=== PATIENT | female | born 1980 | race Caucasian/White ===

== ENCOUNTER 2018-11-26 23:39 | Observation (INO) | payer SELFPAY ==
[2018-11-27] MEDS ORDERED: Lactated Ringers 1,000 ML IV ONE (00:27)
[2018-11-27 01:10] LABS: BLOOD UREA NITROGEN,BUN 11 mg/dL (7.0-18.0); CARBON DIOXIDE,CO2 17.4 mmol/L (21.0-32.0); CHLORIDE,CL 105 mmol/L (98-107); GLUCOSE RANDOM 137 mg/dL (74-106); POTASSIUM,K 3.2 mmol/L (3.5-5.1); SODIUM,NA 136 mmol/L (136-145)
[2018-11-27] MEDS ORDERED: Morphine 2 MG/ML Syringe IVPUSH ONE (01:15)
[2018-11-27] MEDS ORDERED: Morphine 10 MG/ML Syringe IVPUSH ONE (01:15)
[2018-11-27] MEDS ORDERED: Ampicillin 2 GM in Sodium Chloride 0.9% 50 ML IV SCH (03:30)
[2018-11-27] MEDS: Lactated Ringers 1,000 ML IV SCH ×3 (03:45→23:28)
[2018-11-27] MEDS: Ampicillin 2 GM in Sodium Chloride 0.9% 100 ML IV SCH ×4 (03:55→22:25)
[2018-11-27] MEDS: Acetaminophen/oxyCODONE 325-5 MG Tab PO PRN ×5 (04:37→22:34)
--- NOTE | 2018-11-27 10:30 | US ---
INDICATION: female; right flank pain; rule out kidney stones. COMPARISON: Ultrasound examination of the abdomen January 05, 2009. TECHNIQUE: Ultrasound examination of the kidneys and bladder. FINDINGS: The right kidney is measuring 11.1 x 5.6 x 6.5 cm and the left kidney is measuring 10.2 x 5.7 x 5.5 cm. Mild prominence of the right renal collecting system; could be secondary to . Tiny nonobstructing renal calculi bilateral. Urinary bladder is unremarkable. Impression: 1. Mild prominence of the right intrarenal collecting system; could be secondary to . 2. Tiny nonobstructing calculi bilateral. Dictated by Kianna Pacheco MD @ Nov 27 2018 10:24AM Signed by Dr. Kianna Pacheco @ Nov 27 2018 10:29AM
[2018-11-27] MEDS ORDERED: Miconazole 2% Crm 30 GM Tube TOP SCH (22:30)
[2018-11-27] MEDS ORDERED: Nystatin Crm 30 GM Tube TOP PRN (23:10)
[2018-11-28] MEDS: Ampicillin 2 GM in Sodium Chloride 0.9% 100 ML IV SCH ×2 (04:00→10:04)
[2018-11-28] MEDS: Lactated Ringers 1,000 ML IV SCH (07:33)
[2018-11-28] MEDS: Acetaminophen/oxyCODONE 325-5 MG Tab PO PRN (10:01)
[2018-11-28] MEDS ORDERED: Sulfamethoxazole/Trimethoprim 800-160 MG Tab PO SCH (11:00)
== END 2018-11-28 10:40 | disposition home or self-care (01) ==
LOC: MW.OBCHECK 23:39 → MW.OB 23:42 → MW.OBCHECK 11-27 03:31
PROVIDERS: ADMIT Obstetrics & Gynecology; ATTEND Obstetrics & Gynecology
DX: O23.02 Infections of kidney in pregnancy, second trimester (principal); N13.6 Pyonephrosis; Z3A.22 22 weeks gestation of pregnancy
CPT/HCPCS: 36415; 59025; 76775; 80053; 81003; 82570; 84156; 84550; 85025; 85027; 87086; 96361; 96365; 96366; 96367; 96375; 96376; A9270; G0378; J0290; J1580; J2270; J7030; J7050; J7120

== ENCOUNTER 2020-11-30 07:31 | Day surgery (SDC) | payer MEDICAID ==
[~2020-11-30 07:31] MED LIST: Albuterol 0.083% 2.5 MG/3 ML Neb Soln NEB PRN; Dexamethasone 4 MG/ML 5 ML MDV ONE; HYDROmorphone 1 MG/ML Syringe IVPUSH PRN; Metoclopramide 10 MG/2 ML SDV IVPUSH PRN; Midazolam 1 MG/ML 2 ML SDV ONE; Morphine 2 MG/ML SYRINGE IVPUSH PRN; Naloxone 0.4 MG/ML SDV IVPUSH PRN; Ondansetron 4 MG/2 ML SDV IVPUSH PRN; Ondansetron 4 MG/2 ML SDV ONE; Propofol 200 MG/20 ML SDV ONE; Rocuronium Bromide 50 MG/5 ML Syringe ONE; fentaNYL 100 MCG/2 ML SDV IVPUSH PRN; fentaNYL 250 MCG/5 ML SDV ONE
[2020-11-30] MEDS ORDERED: Lactated Ringers 1,000 ML IV SCH (07:45)
[2020-11-30] MEDS ORDERED: Scopolamine 1.5 MG Transdermal Patch ONE (08:25)
[2020-11-30] MEDS ORDERED: Fluorescein 5 ML Vial ONE (08:47)
[2020-11-30] MEDS ORDERED: Methylene Blue 50 MG/10 ML Ampule ONE (08:47)
[2020-11-30] MEDS ORDERED: Bupivacaine 0.25% 10 ML SDV ONE (08:47)
[2020-11-30] MEDS ORDERED: Octyl 2-Cyanoacrylate 1 Tube ONE (08:48)
[2020-11-30] MEDS ORDERED: ceFAZolin 1 GM Vial ONE (08:50)
[2020-11-30] MEDS ORDERED: Sodium Chloride 0.9% 20 ML ONE ×2 (08:50→12:27)
[2020-11-30] MEDS ORDERED: Sugammadex Sodium 200 MG/2 ML VIAL ONE (08:55)
[2020-11-30] MEDS ORDERED: Sodium Chloride 0.9% 10 ML Syringe FLUSH PRN (08:58)
[2020-11-30] MEDS ORDERED: Sodium Chloride 0.9% 2.5 ML Syringe FLUSH PRN (08:58)
[2020-11-30] MEDS ORDERED: Sodium Chloride 0.9% 10 ML SDV IV PRN (08:58)
[2020-11-30 08:59] LABS: BLOOD UREA NITROGEN,BUN 12 mg/dL (7.0-18.0); CARBON DIOXIDE,CO2 24.2 mmol/L (21.0-32.0); CHLORIDE,CL 106 mmol/L (98-107); GLUCOSE RANDOM 114 mg/dL (74-106); POTASSIUM,K 3.7 mmol/L (3.5-5.1); SODIUM,NA 140 mmol/L (136-145)
[2020-11-30] MEDS ORDERED: Lidocaine 1% 20 ML MDV ONE (09:00)
[2020-11-30] MEDS ORDERED: Lidocaine 1% with EPINEPHrine 1:100,000 20 ML MDV ONE (09:00)
[2020-11-30] MEDS ORDERED: Neomycin/Polymyxin B Bladder Irrigation 1 ML Amp ONE (09:00)
--- NOTE | 2020-11-30 09:14 | PCM.PREANE ---
Preanesthetic Assessment - Anesthesia/Transfusion/Family Hx Anesthesia History: Prior Anesthesia Without Reaction Family History of Anesthesia Reaction: No Transfusion History: No Prior Transfusion(s) - Review of Systems General: No Symptoms Pulmonary: No Symptoms Cardiovascular: No Symptoms Gastrointestinal: No Symptoms Neurological: No Symptoms Other: Reports: None - Physical Assessment NPO Status Date: 11/30/20 NPO Status Time: 00:00 Vital Signs: Last Vital Signs Temp 97.3 F 11/30/20 08:01 Pulse 75 11/30/20 08:01 Resp 16 11/30/20 08:01 BP 129/85 11/30/20 08:01 Pulse Ox 98 11/30/20 08:01 Height: 5 ft 2 in Weight: 155 lb ASA Class: 2 Mental Status: Alert & Oriented x3 Airway Class: Mallampati = 2 Dentition: Reports: Normal Dentition Thyro-Mental Finger Breadths: 3 Mouth Opening Finger Breadths: 3 ROM/Head Extension: Full Lungs: Clear to Auscultation, Normal Respiratory Effort Cardiovascular: Regular Rate, Regular Rhythm - Lab Values: Laboratory Last Values WBC 3.79 K/uL (4.0-11.0) L 11/30/20 08:12 RBC 3.96 M/uL (4.30-5.90) L 11/30/20 08:12 Hgb 11.1 g/dL (12.0-16.0) L 11/30/20 08:12 Hct 33.9 % (36.0-46.0) L 11/30/20 08:12 MCV 85.6 fL (80.0-98.0) 11/30/20 08:12 MCH 28.0 pg (27.0-32.0) 11/30/20 08:12 MCHC 32.7 g/dL (31.0-37.0) 11/30/20 08:12 RDW Std Deviation 47.8 fl (28.0-62.0) 11/30/20 08:12 RDW Coeff of Lyudmila 15 % (11.0-15.0) 11/30/20 08:12 Plt Count 299 K/uL (150-400) 11/30/20 08:12 MPV 9.90 fL (7.40-12.00) 11/30/20 08:12 Neut % (Auto) 51.9 % (48.0-80.0) 11/30/20 08:12 Lymph % (Auto) 35.4 % (16.0-40.0) 11/30/20 08:12 [place] % (Auto) 8.2 % (0.0-15.0) 11/30/20 08:12 Eos % (Auto) 3.7 % (0.0-7.0) 11/30/20 08:12 Baso % (Auto) 0.8 % (0.0-1.5) 11/30/20 08:12 Neut # (Auto) 2.0 K/uL (1.4-5.7) 11/30/20 08:12 Lymph # (Auto) 1.3 K/uL (0.6-2.4) 11/30/20 08:12 [place] # (Auto) 0.3 K/uL (0.0-0.8) 11/30/20 08:12 Eos # (Auto) 0.1 K/uL (0.0-0.7) 11/30/20 08:12 Baso # (Auto) 0.0 K/uL (0.0-0.1) 11/30/20 08:12 Nucleated RBC % 0.0 /100WBC 11/30/20 08:12 Nucleated RBCs # 0 K/uL 11/30/20 08:12 Sodium 140 mmol/L (136-145) 11/30/20 08:12 Potassium 3.7 mmol/L (3.5-5.1) 11/30/20 08:12 Chloride 106 mmol/L (98-107) 11/30/20 08:12 Carbon Dioxide 24.2 mmol/L (21.0-32.0) 11/30/20 08:12 BUN 12 mg/dL (7.0-18.0) 11/30/20 08:12 Creatinine 0.9 mg/dL (0.6-1.0) 11/30/20 08:12 Est Cr Clr Drug Dosing 65.72 mL/min 11/30/20 08:12 Estimated GFR (MDRD) > 60.0 ml/min 11/30/20 08:12 Glucose 114 mg/dL (74-106) H 11/30/20 08:12 Calcium 8.3 mg/dL (8.5-10.1) L 11/30/20 08:12 - Allergies Allergies/Adverse Reactions: Allergies Allergy/AdvReac Type Severity Reaction Status Date / Time pollen extracts Allergy "sinus Verified 11/30/20 07:57 congestion" - Acknowledgements Anesthesia Type Planned: General Anesthesia Pt an Appropriate Candidate for the Planned Anesthesia: Yes Alternatives and Risks of Anesthesia Discussed w Pt/Guardian: Yes Pt/Guardian Understands and Agrees with Anesthesia Plan: Yes PreAnesthesia Questionnaire HEENT History: Reports: Other (See Below) Other HEENT History: wears glasses/contacts Cardiovascular History: Reports: None Respiratory History: Reports: None Gastrointestinal History: Reports: None Genitourinary History: Reports: UTI, Recurrent [employer] History: Reports: , Therapeutic Musculoskeletal History: Reports: None Neurological History: Reports: None Psychiatric History: Reports: Anxiety, Other (See Below) Other Psychiatric History: hx post depression Endocrine/Metabolic History: Reports: Hypoparathyroidism Hematologic History: Reports: Anemia Immunologic History: Reports: None Oncologic (Cancer) History: Reports: None Dermatologic History: Reports: None - Infectious Disease History Infectious Disease History: Reports: None - Past Surgical History Head Surgeries/Procedures: Reports: None HEENT Surgical History: Reports: Oral Surgery Cardiovascular Surgical History: Reports: None Respiratory Surgical History: Reports: None GI Surgical History: Reports: Cholecystectomy Female Surgical History: Reports: Breast Reconstruction, D&C Other Female Surgeries/Procedures: "breast lift" Endocrine Surgical History: Reports: None Neurological Surgical History: Reports: None Musculoskeletal Surgical History: Reports: None Oncologic Surgical History: Reports: None Dermatological Surgical History: Reports: None - SUBSTANCE USE Tobacco Use Status *Q: Never Tobacco User - HOME MEDS Home Medications: Home Meds Progesterone, Micronized [Progesterone] 200 mg PO DAILY 11/25/20 [History] - CURRENT (IN HOUSE) MEDS Current Meds: Current Medications Albuterol (Albuterol 0.083% 2.5 Mg/3 Ml Neb Soln) 2.5 mg NEB ONETIME PRN PRN Reason: Wheezing Droperidol (Droperidol 5 Mg/2 Ml Sdv) 0.625 mg IVPUSH ONETIME PRN PRN Reason: Nausea/Vomiting Fentanyl (Fentanyl 100 Mcg/2 Ml Sdv) 50 mcg IVPUSH Q5M PRN PRN Reason: Pain (mild 1-3) Hydromorphone HCl (Hydromorphone 1 Mg/Ml Syringe) 1 mg IVPUSH Q10M PRN PRN Reason: Pain (moderate 4-6) Lactated Ringer's (Ringers, Lactated) 1,000 mls @ 125 mls/hr IV ASDIRECTED FIDEL Last Admin: 11/30/20 08:01 Dose: 125 mls/hr Documented by: Metoclopramide HCl (Metoclopramide 10 Mg/2 Ml Sdv) 10 mg IVPUSH ONETIME PRN PRN Reason: Nausea/Vomiting Morphine Sulfate (Morphine 2 Mg/Ml Syringe) 2 mg IVPUSH Q10M PRN PRN Reason: Pain (severe 7-10) Naloxone HCl (Naloxone 0.4 Mg/Ml Sdv) 0.1 mg IVPUSH ASDIRECTED PRN PRN Reason: Respiratory Depression Ondansetron HCl (Ondansetron 4 Mg/2 Ml Sdv) 4 mg IVPUSH ONETIME PRN PRN Reason: Nausea/Vomiting Sodium Chloride (Sodium Chloride 0.9% 10 Ml Syringe) 10 ml FLUSH ASDIRECTED PRN PRN Reason: Keep Vein Open Sodium Chloride (Sodium Chloride 0.9% 2.5 Ml Syringe) 2.5 ml FLUSH ASDIRECTED PRN PRN Reason: Keep Vein Open Sodium Chloride (Sodium Chloride 0.9% 10 Ml Sdv) 10 ml IV ASDIRECTED PRN PRN Reason: IV Use Discontinued Medications Bupivacaine HCl (Bupivacaine 0.25% 10 Ml Sdv) Confirm Administered Dose 20 ml .ROUTE .STK-MED ONE Stop: 11/30/20 08:48 Cefazolin Sodium (Cefazolin 1 Gm Vial) Confirm Administered Dose 2 gm .ROUTE .STK-MED ONE Stop: 11/30/20 08:51 Dexamethasone (Dexamethasone 4 Mg/Ml 5 Ml Mdv) Confirm Administered Dose 20 mg .ROUTE .STK-MED ONE Stop: 11/30/20 07:17 Fentanyl (Fentanyl 250 Mcg/5 Ml Sdv) Confirm Administered Dose 250 mcg .ROUTE .STK-MED ONE Stop: 11/30/20 07:09 Fluorescein Sodium (Fluorescein 5 Ml Vial) Confirm Administered Dose 5 ml .ROUTE .STK-MED ONE Stop: 11/30/20 08:48 Sodium Chloride (Normal Saline) Confirm Administered Dose 20 mls @ as directed .ROUTE .STK-MED ONE Stop: 11/30/20 08:51 Lidocaine HCl (Lidocaine 1% 5 Ml Sdv) Confirm Administered Dose 5 ml .ROUTE .[facility] ONE Stop: 11/30/20 07:17 Lidocaine HCl (Lidocaine 1% 20 Ml Mdv) Confirm Administered Dose 20 ml .[address]TE .[facility] ONE Stop: 11/30/20 09:01 Lidocaine/Epinephrine (Lidocaine 1% With Epinephrine 1:100,000 20 Ml Mdv) Confirm Administered Dose 20 ml .[address] .[facility] ONE Stop: 11/30/20 09:01 Methylene Blue (Methylene Blue 50 Mg/10 Ml Ampule) Confirm Administered Dose 50 mg .[address] .[facility] ONE Stop: 11/30/20 08:48 Midazolam HCl (Midazolam 1 Mg/Ml 2 Ml Sdv) Confirm Administered Dose 2 mg .R[address] .[facility] ONE Stop: 11/30/20 07:09 Neomycin/Polymyxin (Neomycin/Polymyxin B Bladder Irrigation 1 Ml Amp) Confirm Administered Dose 1 ml .ROUTE .[facility] ONE Stop: 11/30/20 09:01 Octyl Cyanoacrylate (Octyl 2-Cyanoacrylate 1 Tube) Confirm Administered Dose 1 applic .ROUTE .[facility] ONE Stop: 11/30/20 08:49 Ondansetron HCl (Ondansetron 4 Mg/2 Ml Sdv) Confirm Administered Dose 4 mg .ROUTE .[facility] ONE Stop: 11/30/20 07:17 Propofol (Propofol 200 Mg/20 Ml Sdv) Confirm Administered Dose 200 [address] .[address] .[facility] ONE Stop: 11/30/20 07:09 Rocuronium [place] (Rocuronium [place] 50 Mg/5 Ml Syringe) Confirm Administered Dose 50 mg .[address] .[facility] ONE Stop: 11/30/20 07:19 Scopolamine (Scopolamine 1.5 Mg Transdermal Patch) Confirm Administered Dose 1.5 mg .ROUTE .[facility] ONE Stop: 11/30/20 08:26 Sugammadex Sodium (Sugammadex Sodium 200 Mg/2 Ml Vial) Confirm Administered Dose 400 mg .[address]TE .[facility] ONE Stop: 11/30/20 08:56
[2020-11-30] MEDS ORDERED: Vasopressin 20 Units/1 ML MDV ONE (10:46)
[2020-11-30] MEDS ORDERED: HYDROmorphone 2 MG/ML Syringe ONE (12:27)
[2020-11-30] MEDS ORDERED: fentaNYL 100 MCG/2 ML SDV ONE (12:54)
[2020-11-30] MEDS ORDERED: Ketorolac 30 MG/ML SDV IVPUSH PRN (13:55)
[2020-11-30] MEDS ORDERED: Ketorolac 30 MG/ML SDV IVPUSH ONE (13:55)
[2020-11-30] MEDS ORDERED: Acetaminophen/oxyCODONE 325-5 MG Tab PO PRN (13:55)
[2020-11-30] MEDS ORDERED: Promethazine 25 MG/ML SDV IM PRN (13:55)
[2020-11-30] MEDS ORDERED: Ondansetron 4 MG/2 ML SDV IVPUSH PRN (13:55)
[2020-11-30] MEDS ORDERED: ceFAZolin 2 GM in Premix Bag 1 BAG IV SCH (14:00)
--- NOTE | 2020-11-30 14:10 | PCM.OPNOTE ---
- General Post-Op/Procedure Note Date of Surgery/Procedure: 11/30/20 Operative Procedure(s): Total laparoscopic Hysterectomy , Bilateral Salphingectomy. Harper culdoplasty. Anterior and posterior colporraphy. Perineorraphy. Single incision midurethral sling Findings: Normal sized anteverted uterus , Normal tubes and ovaries Stage 2 Cystocoele Stage 2 rectocoele Pre Op Diagnosis: 30yo P8 with abnormal uterine bleeding. Stress incontinence. Cystocoele and Rectocoele Post-Op Diagnosis: same Anesthesia Technique: General ET Tube Primary Surgeon: Memo Ramirez Secondary Surgeon: George Higuera Anesthesia Provider: Amina Dumont Pathology: Uterus and tubes Vaginal llamas Fluid Replacement, Intraop: 1,100 Output, Urine Amount: 300 EBL in mLs: 400 Complications: None Condition: Good
--- NOTE | 2020-11-30 14:40 | PCM48HPAN ---
Post Anesthesia Note - EVALUATION WITHIN 48HRS OF ANESTHETIC Vital Signs in Normal Range: Yes Patient Participated in Evaluation: Yes Respiratory Function Stable: Yes Airway Patent: Yes Cardiovascular Function Stable: Yes Hydration Status Stable: Yes Pain Control Satisfactory: Yes Nausea and Vomiting Control Satisfactory: Yes Mental Status Recovered: Yes Vital Signs: Last Vital Signs Temp 98.8 F 11/30/20 13:14 Pulse 73 11/30/20 13:54 Resp 12 11/30/20 13:54 BP 130/78 11/30/20 13:54 Pulse Ox 96 11/30/20 13:54
--- NOTE | 2020-11-30 14:40 | PCM.POSTAN ---
POST ANESTHESIA ASSESSMENT - MENTAL STATUS Mental Status: Alert, Oriented - VITAL SIGNS Vital Signs: Last Vital Signs Temp 98.8 F 11/30/20 13:14 Pulse 73 11/30/20 13:54 Resp 12 11/30/20 13:54 BP 130/78 11/30/20 13:54 Pulse Ox 96 11/30/20 13:54 - RESPIRATORY Respiratory Status: Respiratory Rate WNL, Airway Patent, O2 Saturation Stable - CARDIOVASCULAR CV Status: Pulse Rate WNL, Blood Pressure Stable - GASTROINTESTINAL GI Status: No Symptoms - POST OP HYDRATION Hydration Status: Adequate & Stable
[2020-11-30] MEDS ORDERED: Belladonna Alkaloids/Opium 16.2-30 MG Supp RECTAL ONE (16:00)
[2020-11-30] MEDS ORDERED: Acetaminophen 325 MG Tab PO ONE (18:00)
[2020-11-30] MEDS: Morphine 4 MG/ML Syringe IVPUSH PRN (20:12)
[2020-11-30] MEDS ORDERED: Belladonna Alkaloids/Opium 16.2-30 MG Supp ONE (20:14)
[2020-11-30] MEDS: Metoclopramide 10 MG/2 ML SDV IVPUSH SCH ×2 (21:37)
[2020-12-01] MEDS: Morphine 4 MG/ML Syringe IVPUSH PRN (04:30)
[2020-12-01 06:32] LABS: BLOOD UREA NITROGEN,BUN 7 mg/dL (7.0-18.0); CARBON DIOXIDE,CO2 25.2 mmol/L (21.0-32.0); CHLORIDE,CL 104 mmol/L (98-107); GLUCOSE RANDOM 122 mg/dL (74-106); POTASSIUM,K 3.9 mmol/L (3.5-5.1); SODIUM,NA 138 mmol/L (136-145)
--- NOTE | 2020-12-01 06:40 | PCM.SURGPN ---
- General Info Date of Service: 12/01/20 Date of Surgery/Procedure: 11/30/20 POD#: 1 Post-Op Diagnosis: AUB. Stress incontinence. Cystocele , Rectocele Functional Status: Reports: Pain Controlled, Tolerating Diet, Ambulating, Urinating - Review of Systems General: Reports: No Symptoms HEENT: Reports: No Symptoms Pulmonary: Reports: No Symptoms Cardiovascular: Reports: No Symptoms Gastrointestinal: Reports: No Symptoms Genitourinary: Reports: No Symptoms Musculoskeletal: Reports: No Symptoms Skin: Reports: No Symptoms Neurological: Reports: No Symptoms Psychiatric: Reports: No Symptoms - Patient Data Vitals - Most Recent: Last Vital Signs Temp 36.3 C 12/01/20 03:49 Pulse 68 12/01/20 03:49 Resp 15 12/01/20 03:49 BP 105/70 12/01/20 03:49 Pulse Ox 97 12/01/20 03:49 Weight - Most Recent: 70.307 kg I&O - Last 24 Hours: Intake & Output 11/30/20 11/30/20 12/01/20 14:59 22:59 06:59 Intake Total 1150 50 Output Total 0640 530 1761 Balance -1000 850 -2550 Lab Results Last 24 Hrs: Laboratory Results - last 24 hr 11/30/20 11/30/20 11/30/20 Range/Units 08:12 08:12 08:12 WBC 3.79 L (4.0-11.0) K/uL RBC 3.96 L (4.30-5.90) M/uL Hgb 11.1 L (12.0-16.0) g/dL Hct 33.9 L (36.0-46.0) % MCV 85.6 (80.0-98.0) fL MCH 28.0 (27.0-32.0) pg MCHC 32.7 (31.0-37.0) g/dL RDW Std Deviation 47.8 (28.0-62.0) fl RDW Coeff of Lyudmila 15 (11.0-15.0) % Plt Count 299 (150-400) K/uL MPV 9.90 (7.40-12.00) fL Neut % (Auto) 51.9 (48.0-80.0) % Lymph % (Auto) 35.4 (16.0-40.0) % [place] % (Auto) 8.2 (0.0-15.0) % Eos % (Auto) 3.7 (0.0-7.0) % Baso % (Auto) 0.8 (0.0-1.5) % Neut # (Auto) 2.0 (1.4-5.7) K/uL Lymph # (Auto) 1.3 (0.6-2.4) K/uL [place] # (Auto) 0.3 (0.0-0.8) K/uL Eos # (Auto) 0.1 (0.0-0.7) K/uL Baso # (Auto) 0.0 (0.0-0.1) K/uL Nucleated RBC % 0.0 /100WBC Nucleated RBCs # 0 K/uL Sodium 140 (136-145) mmol/L Potassium 3.7 (3.5-5.1) mmol/L Chloride 106 (98-107) mmol/L Carbon Dioxide 24.2 (21.0-32.0) mmol/L BUN 12 (7.0-18.0) mg/dL Creatinine 0.9 (0.6-1.0) mg/dL Est Cr Clr Drug Dosing 65.72 mL/min Estimated GFR (MDRD) > 60.0 ml/min Glucose 114 H (74-106) mg/dL Calcium 8.3 L (8.5-10.1) mg/dL HCG, Qual NEGATIVE (NEG) Blood Type Antibody Screen 11/30/20 12/01/20 Range/Units 08:12 05:05 WBC 6.98 (4.0-11.0) K/uL RBC 3.26 L (4.30-5.90) M/uL Hgb 9.2 L (12.0-16.0) g/dL Hct 28.3 L (36.0-46.0) % MCV 86.8 (80.0-98.0) fL MCH 28.2 (27.0-32.0) pg MCHC 32.5 (31.0-37.0) g/dL RDW Std Deviation 49.5 (28.0-62.0) fl RDW Coeff of Lyudmila 16 H (11.0-15.0) % Plt Count 294 (150-400) K/uL MPV 10.30 (7.40-12.00) fL Neut % (Auto) 61.7 (48.0-80.0) % Lymph % (Auto) 26.5 (16.0-40.0) % [place] % (Auto) 10.5 (0.0-15.0) % Eos % (Auto) 1.0 (0.0-7.0) % Baso % (Auto) 0.3 (0.0-1.5) % Neut # (Auto) 4.3 (1.4-5.7) K/uL Lymph # (Auto) 1.9 (0.6-2.4) K/uL [place] # (Auto) 0.7 (0.0-0.8) K/uL Eos # (Auto) 0.1 (0.0-0.7) K/uL Baso # (Auto) 0.0 (0.0-0.1) K/uL Nucleated RBC % 0.0 /100WBC Nucleated RBCs # 0 K/uL Sodium (136-145) mmol/L Potassium (3.5-5.1) mmol/L Chloride (98-107) mmol/L Carbon Dioxide (21.0-32.0) mmol/L BUN (7.0-18.0) mg/dL Creatinine (0.6-1.0) mg/dL Est Cr Clr Drug Dosing mL/min Estimated GFR (MDRD) ml/min Glucose (74-106) mg/dL Calcium (8.5-10.1) mg/dL HCG, Qual (NEG) Blood Type A POSITIVE Antibody Screen NEGATIVE Med Orders - Current: Current Medications Ketorolac Tromethamine (Ketorolac 30 Mg/Ml Sdv) 30 mg IVPUSH Q6H PRN PRN Reason: Pain (severe 7-10) Stop: 12/05/20 13:55 Last Admin: 12/01/20 03:41 Dose: 30 mg Documented by: Morphine Sulfate (Morphine 4 Mg/Ml Syringe) 4 mg IVPUSH Q2H PRN PRN Reason: Pain (severe 7-10) Last Admin: 12/01/20 04:30 Dose: 4 mg Documented by: Ondansetron HCl (Ondansetron 4 Mg/2 Ml Sdv) 4 mg IVPUSH Q6H PRN PRN Reason: Nausea/Vomiting Last Admin: 11/30/20 15:23 Dose: 4 mg Documented by: Oxycodone/Acetaminophen (Acetaminophen/Oxycodone 325-5 Mg Tab) 1 tab PO Q4H PRN PRN Reason: Pain (moderate 4-6) Oxycodone/Acetaminophen (Acetaminophen/Oxycodone 325-5 Mg Tab) 2 tab PO Q4H PRN PRN Reason: Pain (moderate 4-6) Promethazine HCl (Promethazine 25 Mg/Ml Sdv) 25 mg IM Q6H PRN PRN Reason: Nausea/Vomiting Sodium Chloride (Sodium Chloride 0.9% 10 Ml Syringe) 10 ml FLUSH ASDIRECTED PRN PRN Reason: Keep Vein Open Sodium Chloride (Sodium Chloride 0.9% 2.5 Ml Syringe) 2.5 ml FLUSH ASDIRECTED PRN PRN Reason: Keep Vein Open Sodium Chloride (Sodium Chloride 0.9% 10 Ml Sdv) 10 ml IV ASDIRECTED PRN PRN Reason: IV Use Discontinued Medications Acetaminophen (Acetaminophen 325 Mg Tab) 650 mg PO NOW ONE Stop: 11/30/20 18:01 Last Admin: 11/30/20 22:21 Dose: Not Given Documented by: Albuterol (Albuterol 0.083% 2.5 Mg/3 Ml Neb Soln) 2.5 mg NEB ONETIME PRN PRN Reason: Wheezing Belladonna Alkaloids/Opium (Belladonna Alkaloids/Opium 16.2-30 Mg Supp) 1 supp RECTAL ONETIME ONE Stop: 11/30/20 16:01 Last Admin: 11/30/20 20:48 Dose: Not Given Documented by: Belladonna Alkaloids/Opium (Belladonna Alkaloids/Opium 16.2-30 Mg Supp) Confirm Administered Dose 1 supp .ROUTE .STK-MED ONE Stop: 11/30/20 20:15 Last Admin: 11/30/20 20:00 Dose: Not Given Documented by: Bupivacaine HCl (Bupivacaine 0.25% 10 Ml Sdv) Confirm Administered Dose 20 ml .ROUTE .STK-MED ONE Stop: 11/30/20 08:48 Cefazolin Sodium (Cefazolin 1 Gm Vial) Confirm Administered Dose 2 gm .ROUTE .STK-MED ONE Stop: 11/30/20 08:51 Dexamethasone (Dexamethasone 4 Mg/Ml 5 Ml Mdv) Confirm Administered Dose 20 mg .ROUTE .STK-MED ONE Stop: 11/30/20 07:17 Droperidol (Droperidol 5 Mg/2 Ml Sdv) 0.625 mg IVPUSH ONETIME PRN PRN Reason: Nausea/Vomiting Fentanyl (Fentanyl 250 Mcg/5 Ml Sdv) Confirm Administered Dose 250 mcg .ROUTE .STK-MED ONE Stop: 11/30/20 07:09 Fentanyl (Fentanyl 100 Mcg/2 Ml Sdv) 50 mcg IVPUSH Q5M PRN PRN Reason: Pain (mild 1-3) Fentanyl (Fentanyl 100 Mcg/2 Ml Sdv) Confirm Administered Dose 100 mcg .ROUTE .STK-MED ONE Stop: 11/30/20 12:55 Fluorescein Sodium (Fluorescein 5 Ml Vial) Confirm Administered Dose 5 ml .ROUTE .STK-MED ONE Stop: 11/30/20 08:48 Hydromorphone HCl (Hydromorphone 1 Mg/Ml Syringe) 1 mg IVPUSH Q10M PRN PRN Reason: Pain (moderate 4-6) Hydromorphone HCl (Hydromorphone 2 Mg/Ml Syringe) Confirm Administered Dose 2 mg .ROUTE .STK-MED ONE Stop: 11/30/20 12:28 Lactated Ringer's (Ringers, Lactated) 1,000 mls @ 125 mls/hr IV ASDIRECTED [facility] Last Admin: 11/30/20 08:01 Dose: 125 mls/hr Documented by: Sodium Chloride (Normal Saline) Confirm Administered Dose 20 mls @ as directed .ROUTE .STK-MED ONE Stop: 11/30/20 08:51 Sodium Chloride (Normal Saline) Confirm Administered Dose 20 mls @ as directed .ROUTE .STK-MED ONE Stop: 11/30/20 12:28 Acetaminophen (Ofirmev 1000 Mg/100 Ml) Confirm Administered Dose 100 mls @ as directed .ROUTE .STK-MED ONE Stop: 11/30/20 13:21 Cefazolin Sodium/Dextrose (Ancef 1 Gm/50 Ml) 50 mls @ 100 mls/hr IV Q6H [facility] Stop: 12/01/20 03:29 Last Infusion: 12/01/20 04:10 Dose: Infused Documented by: Ketorolac Tromethamine (Ketorolac 30 Mg/Ml Sdv) 30 mg IVPUSH ONETIME ONE Stop: 11/30/20 13:56 Last Admin: 11/30/20 15:32 Dose: 30 mg Documented by: Lidocaine HCl (Lidocaine 1% 5 Ml Sdv) Confirm Administered Dose 5 ml .ROUTE .STK-MED ONE Stop: 11/30/20 07:17 Lidocaine HCl (Lidocaine 1% 20 Ml Mdv) Confirm Administered Dose 20 ml .ROUTE .STK-MED ONE Stop: 11/30/20 09:01 Lidocaine/Epinephrine (Lidocaine 1% With Epinephrine 1:100,000 20 Ml Mdv) Confirm Administered Dose 20 ml .ROUTE .STK-MED ONE Stop: 11/30/20 09:01 Methylene Blue (Methylene Blue 50 Mg/10 Ml Ampule) Confirm Administered Dose 50 mg .ROUTE .[facility]-MED ONE Stop: 11/30/20 08:48 Metoclopramide HCl (Metoclopramide 10 Mg/2 Ml Sdv) 10 mg IVPUSH ONETIME PRN PRN Reason: Nausea/Vomiting Metoclopramide HCl (Metoclopramide 10 Mg/2 Ml Sdv) 10 mg IVPUSH Q8H [facility]ID[facility] Stop: 11/30/20 22:16 Last Admin: 11/30/20 21:37 Dose: 10 mg Documented by: Midazolam HCl (Midazolam 1 Mg/Ml 2 Ml Sdv) Confirm Administered Dose 2 mg .ROUTE .[facility]-MED ONE Stop: 11/30/20 07:09 Miscellaneous Medication (Phenylephrine Hcl In 0.9% Nacl 1 Mg/10 Ml Syringe) Confirm Administered Dose 1 mg .ROUTE .[facility]-MED ONE Stop: 11/30/20 12:44 Morphine Sulfate (Morphine 2 Mg/Ml Syringe) 2 mg IVPUSH Q10M PRN PRN Reason: Pain (severe 7-10) Naloxone HCl (Naloxone 0.4 Mg/Ml Sdv) 0.1 mg IVPUSH ASDIRECTED PRN PRN Reason: Respiratory Depression Neomycin/Polymyxin (Neomycin/Polymyxin B Bladder Irrigation 1 Ml Amp) Confirm Administered Dose 1 ml .ROUTE .ST-MED ONE Stop: 11/30/20 09:01 Octyl Cyanoacrylate (Octyl 2-Cyanoacrylate 1 Tube) Confirm Administered Dose 1 applic .ROUTE .[employer]-MED ONE Stop: 11/30/20 08:49 Ondansetron HCl (Ondansetron 4 Mg/2 Ml Sdv) Confirm Administered Dose 4 mg .R OUTE .STK-MED ONE Stop: 11/30/20 07:17 Ondansetron HCl (Ondansetron 4 Mg/2 Ml Sdv) 4 mg IVPUSH ONETIME PRN PRN Reason: Nausea/Vomiting Propofol (Propofol 200 Mg/20 Ml Sdv) Confirm Administered Dose 200 mg .ROUTE .STK-MED ONE Stop: 11/30/20 07:09 Rocuronium [place] (Rocuronium [place] 50 Mg/5 Ml Syringe) Confirm Administered Dose 50 mg .ROUTE .STK-MED ONE Stop: 11/30/20 07:19 Scopolamine (Scopolamine 1.5 Mg Transdermal Patch) Confirm Administered Dose 1.5 mg .ROUTE .STK-MED ONE Stop: 11/30/20 08:26 Last Admin: 11/30/20 20:07 Dose: Not Given Documented by: Sugammadex Sodium (Sugammadex Sodium 200 Mg/2 Ml Vial) Confirm Administered Dose 400 mg .ROUTE .STK-MED ONE Stop: 11/30/20 08:56 Vasopressin (Vasopressin 20 Units/1 Ml Mdv) Confirm Administered Dose 20 units .ROUTE .STK-MED ONE Stop: 11/30/20 10:47 - Exam Wound/Incisions: Dressing Dry and Intact General: Alert HEENT: Pupils Equal Neck: Supple Lungs: Clear to Auscultation Cardiovascular: Regular Rate, Regular Rhythm GI/Abdominal Exam: Normal Bowel Sounds Extremities: Normal Inspection Psy/Mental Status: Alert Sepsis Event Note - Evaluation Sepsis Screening Result: No Definite Risk - Focused Exam Vital Signs: Vital Signs Temp Pulse Resp BP Pulse Ox 12/01/20 03:49 36.3 C 68 15 105/70 97 11/30/20 23:33 36.0 C L 107 H 18 120/74 96 11/30/20 21:00 36.2 C 86 16 125/78 98 11/30/20 19:35 35.8 C L 81 18 119/72 99 - Problem List & Annotations (1) S/P hysterectomy SNOMED Code(s): 976541093, 792967110, 561727048 Code(s): Z90.710 - ACQUIRED ABSENCE OF BOTH CERVIX AND UTERUS Status: Acute Current Visit: Yes (2) Status post anterior colporrhaphy SNOMED Code(s): 02696822844975138, 49247144308359518 Code(s): Z98.890 - OTHER SPECIFIED POSTPROCEDURAL STATES Status: Acute Current Visit: Yes - Problem List Review Problem List Initiated/Reviewed/Updated: Yes - My Orders Last 24 Hours: Active Orders 24 hr Category Date Time Status Patient Status [ADT] Routine ADT 11/30/20 12:00 Active Antiembolic Devices [RC] PER UNIT ROUTINE Care 11/30/20 09:00 Active Antiembolic Devices [RC] PER UNIT ROUTINE Care 11/30/20 13:55 Active Notify Provider Intake and Out [RC] ASDIRECTED Care 11/30/20 13:55 Active Notify Provider Vital Signs [RC] ASDIRECTED Care 11/30/20 13:55 Active Overnight Pulse Oximetry [RC] Click to Edit Care 11/30/20 07:23 Active RT Incentive Spirometry [RC] Q2HWA Care 11/30/20 13:55 Active Up ad Marie [RC] PER UNIT ROUTINE Care 11/30/20 13:55 Active Vital Signs [RC] PER UNIT ROUTINE Care 11/30/20 13:55 Active Regular Diet [DIET] Diet 11/30/20 Dinner Active BASIC METABOLIC PANEL,BMP [CHEM] AM Lab 12/01/20 05:05 Received Acetaminophen/oxyCODONE [Percocet 325-5 MG] Med 11/30/20 13:55 Active 1 tab PO Q4H PRN Acetaminophen/oxyCODONE [Percocet 325-5 MG] Med 11/30/20 13:55 Active 2 tab PO Q4H PRN Ketorolac [Toradol] Med 11/30/20 13:55 Active 30 mg IVPUSH Q6H PRN Morphine Med 11/30/20 13:55 Active 4 mg IVPUSH Q2H PRN Ondansetron [Zofran] Med 11/30/20 13:55 Active 4 mg IVPUSH Q6H PRN Promethazine [Phenergan] Med 11/30/20 13:55 Active 25 mg IM Q6H PRN Sodium Chloride 0.9% [Normal Saline] Med 11/30/20 08:58 Active 10 ml IV ASDIRECTED PRN Sodium Chloride 0.9% [Saline Flush] Med 11/30/20 08:58 Active 10 ml FLUSH ASDIRECTED PRN Sodium Chloride 0.9% [Saline Flush] Med 11/30/20 08:58 Active 2.5 ml FLUSH ASDIRECTED PRN Peripheral IV Discontinue [OM.PC] Routine Ot 11/30/20 13:55 Ordered Peripheral IV Insertion Adult [OM.PC] Urgent Ot 11/30/20 08:58 Ordered Pulse Oximetry Continuous Monitoring [OM.PC] Routine Ot 11/30/20 07:23 Ord ered Sequential Compression Device [OM.PC] Per Unit Routine Ot 11/30/20 08:58 Ordered Sequential Compression Device [OM.PC] Per Unit Routine Ot 11/30/20 13:55 Ordered Resuscitation Status Routine Resus Stat 11/30/20 13:55 Ordered Medication Orders Ketorolac Tromethamine (Ketorolac 30 Mg/Ml Sdv) 30 mg IVPUSH Q6H PRN PRN Reason: Pain (severe 7-10) Stop: 12/05/20 13:55 Last Admin: 12/01/20 03:41 Dose: 30 mg Documented by: NEHA Morphine Sulfate (Morphine 4 Mg/Ml Syringe) 4 mg IVPUSH Q2H PRN PRN Reason: Pain (severe 7-10) Last Admin: 12/01/20 04:30 Dose: 4 mg Documented by: Admin: 11/30/20 20:12 Dose: 4 mg Documented by: NEHA Ondansetron HCl (Ondansetron 4 Mg/2 Ml Sdv) 4 mg IVPUSH Q6H PRN PRN Reason: Nausea/Vomiting Last Admin: 11/30/20 15:23 Dose: 4 mg Documented by: EDMUNDO Oxycodone/Acetaminophen (Acetaminophen/Oxycodone 325-5 Mg Tab) 1 tab PO Q4H PRN PRN Reason: Pain (moderate 4-6) Oxycodone/Acetaminophen (Acetaminophen/Oxycodone 325-5 Mg Tab) 2 tab PO Q4H PRN PRN Reason: Pain (moderate 4-6) Promethazine HCl (Promethazine 25 Mg/Ml Sdv) 25 mg IM Q6H PRN PRN Reason: Nausea/Vomiting Sodium Chloride (Sodium Chloride 0.9% 10 Ml Syringe) 10 ml FLUSH ASDIRECTED PRN PRN Reason: Keep Vein Open Sodium Chloride (Sodium Chloride 0.9% 2.5 Ml Syringe) 2.5 ml FLUSH ASDIRECTED PRN PRN Reason: Keep Vein Open Sodium Chloride (Sodium Chloride 0.9% 10 Ml Sdv) 10 ml IV ASDIRECTED PRN PRN Reason: IV Use - Assessment Assessment (Free Text/Narrative):: 40yo P8 s/p TLH/BS , AP repair and Single incision midurethral sling , POD1 Narayanan removed - patient voided 500cc , vaginal packing removed H/H: 11 to 9 - Plan Plan (Free Text/Narrative):: Plan Incentive spirometry Pain control as neede Lovenox 40mg Discharge instructions given
[2020-12-01] MEDS ORDERED: Enoxaparin 40 MG/0.4 ML Syringe SUBCUT ONE (06:49)
[2020-12-01 08:01] VITALS: BP 115/72; PULSE 77
[2020-12-01] MEDS: Acetaminophen/oxyCODONE 325-5 MG Tab PO PRN ×2 (08:25→12:21)
--- NOTE | 2020-12-01 10:29 | OR ---
SURGEON: FROYLAN SMITH DATE OF PROCEDURE: 11/30/2020 PREOPERATIVE DIAGNOSES: A 40-year-old, para 8 with abnormal uterine and vaginal bleeding, stress incontinence, cystocele, and rectocele. POSTOPERATIVE DIAGNOSES: A 40-year-old, para 8 with abnormal uterine and vaginal bleeding, stress incontinence, cystocele, and rectocele. PROCEDURE: Total laparoscopic hysterectomy, bilateral salpingectomy, anterior and posterior colporrhaphy, cystoscopy, and single incision midurethral sling. ESTIMATED BLOOD LOSS: 400. IV FLUID: 1100. ANESTHESIA: General endotracheal. URINE OUTPUT: 300. NOTES AND FINDINGS: A normal-sized anteverted uterus, grade 2 cystocele, grade 2 rectocele. Cystoscopy at the end of the procedure showed intact bladder and bilateral ureteral jets. BRIEF HISTORY ABOUT THE PATIENT: She is a 40-year-old, para 8, who came in complaining of heavy bleeding and also leakage of fluid. She had tried hormonal management for heavy bleeding, which was affecting her mood. Due to the result of this, she desired definitive management for her stress incontinence. She was complaining of leaking of fluid. She had to wear Poise tampon to elevate her bladder. She also complained of leakage of fluid with coughing. She also complained of some mild dyspareunia. As a result of this, the patient had a cystometry done, which confirmed stress urinary incontinence, made normal postvoid residual. As a result, the patient wanted a surgical approach. She was informed she would need a hysterectomy for the abnormal uterine bleeding and a single incision sling for the stress incontinence and anterior and posterior repair. She was given the option to be transfer care to a urogynecologist. The patient wanted to stay in [place]. She was explained the risks of surgery which include infection, bleeding, and damage to the surrounding tissue. She was explained the risks of repair of the cystocele and rectocele as dyspareunia and shortening of the vagina; and she was informed of the risks of stress incontinence to include mesh erosion, worsening, urgency, need for reoperation, and urinary retention. The patient understood the risks and she decided to proceed. PROCEDURE IN DETAIL: The patient was taken to the operating room, where general anesthesia was performed without difficulty. She was prepared and draped in the dorsal lithotomy position with Fernando stirrups. A Narayanan catheter was placed. A speculum was used to expose the cervix. The anterior lip of the cervix was grasped. The cervix was sized to 3.5 cm. The cervix was then dilated to accommodate the Advincula. The uterus was sounded to 9 cm. The Advincula was placed without difficulty. The attention was then placed to the abdomen. A subumbilical 5 mm incision was made after injection of 0.25% Marcaine. The abdomen was entered via direct entry. Entry was confirmed with low intraabdominal pressure of 5 mmHg. CO2 pneumoperitoneum was then obtained to 15 mmHg. The patient was placed in Trendelenburg position. Then, the right and left lower quadrant ports were placed. A 5 mm incision was made 2 fingerbreadths superior and medial to the anterior superior iliac spine. The bilateral ureters were observed. Colon was retracted out of the posterior cul- de-sac. The right tube was grasped by the gynecological assistant, and then with the aid of the LigaSure device it was sequentially coagulated and cut to separate it from the ovary, the pelvic brim and ligament. The tube was all the way to the cornua of the uterus. The left tube was detached in the same fashion. The round ligament was transected two-thirds from the uterus and one-third from the pelvic sidewall. The anterior and posterior broad ligaments were to expose the uterine artery. The uterine artery was then skeletonized. The bladder flap was created with the aid of the Harmonic scalpel. The uterine vessels were then coagulated at the cervicovaginal junction and then lateralized. The Advincula cup was then entered, and a circumferential incision was made between the cervix and the vagina with the Harmonic scalpel. This was done on the right and on the left. With a circumferential incision around the colpotomy cup, the uterus was then detached. Attention was then paid to the perineum, where the uterus was removed and the uterosacral ligaments were identified. The Bailey stitch made with 2-0 Vicryl was placed from the posterior vaginal wall to the uterosacral ligament over the pelvic peritoneum and in the posterior cul-de-sac to the other uterosacral ligament. Attention was then placed to the anterior vaginal wall for the cystocele repair. For the cystocele repair, a dilute solution of 1% lidocaine with epi was infiltrated under the vaginal mucosa in the midline. A small incision was made in the vaginal mucosa at the vault, and the Metzenbaum scissors were then used to dissect the mucosa off the cystocele. The vaginal mucosa edge was held and splayed with a series of Allis clamps. The bladder was dissected away along the lateral edges with a combination of sharp and blunt dissection, exposing the vesicovaginal space. A series of 2-0 interrupted stitches were then placed sequentially along the lateral folds of the vesicovaginal space and brought together to the top of the bladder, while simultaneously bringing the lateral vaginal tissues together. The excess vaginal mucosa was then trimmed. The vaginal cuff was then began to be closed with the running locked suture of 0 Polysorb from the anterior all the way to the posterior vaginal cuff. After this was closed, then the Bailey stitch was then tied down. After the vaginal cuff was closed, attention was then placed for the single-incision sling. The bladder base was identified. The midpoint of the ureter was then identified also. A 1.5 cm incision was made in the anterior vaginal wall at the level of the midurethra. The vaginal epithelium was then bilaterally undermined and from the endopelvic fascia using sharp dissection to the level of the inferior pubic rami. This created a pathway for the delivery of the sling device. The tip of the device was then placed into the mesh tip carrier. The deployment mechanism was inserted into the dissected pathway at the 45-degree angle and used to pass the distal anchors to the obturator internus muscle behind the pubic rami. The anchor was then advanced onto the chase and the midline was reached. Once the position was optimized, the anchoring carrier was deployed from the trocar by stabilizing the delivery trocar with one hand and pulling the device with the opposite hand. This was repeated in a similar fashion on the opposite side and the mesh carrier was deposited into the obturator muscle, and the sling was brought to rest at the level of the midurethra without tension. The surgeon verified that the mesh was not twisted prior to deployment of the second mesh, and there was a small instrument that could be easily passed between the urethra and the sling. Before the incision was made in the vagina , the point was injected with 0.25% Marcaine, lidocaine, and epi. After the sling was deployed, antibiotic solution of neomycin was flushed into the tunnel. Then, the vaginal mucosa was closed with 0 Vicryl in a continuous locking fashion. After this, attention was then placed to the rectocele. A dilute solution of vasopressin with lidocaine and normal saline was infiltrated under the posterior vaginal mucosa, midline, and into the perineal body. An invented triangle was cut in the perineum. The posterior vaginal wall was opened vertically in the midline up to the apex of the rectocele. The cut edges were held. The open vaginal mucosa was then dissected laterally with a combination of sharp and blunt dissection, exposing the perirectal fascia. The perirectal fascia was then reapproximated with a pursestring suture going from anterior to posterior in an interrupted fashion to bring the lateral llamas together and pull the rectocele back. Deep interrupted suture of 0 Vicryl was used to approximate the fiber of the levator ani muscle. The excess vaginal mucosa was trimmed. The posterior wall of vaginal was closed with a running locked 0 Vicryl to the hymenal tag. The superficial perineal muscle was closed with a running locked 0 Vicryl, and the perineal skin was closed with a running subcuticular 2-0 Vicryl. The incision of the vaginal cuff was inspected. The anterior colporrhaphy was inspected and was noted to be hemostatic. When the anterior colporrhaphy, the cystoscopy was done, which showed intact bladder and bilateral ureteral jets. After all these were done, a sponge stick was placed in the vagina. Attention was placed to the abdomen. The colpotomy cup was inspected from the peritoneal cavity with the lap scope, which was noted to be hemostatic. The pressure was dropped to 5 mmHg, was also noted to be hemostatic. The trocars were removed. The laparoscopic incision was closed with 4-0 Monocryl, and Tegaderm and Steri-Strip were placed. The vagina was then packed with vaginal packing. The patient tolerated the procedure well. All instrument and pad counts were correct x2. SMOOTH / JUICE /[id number] LEATHA
[2020-12-01] MEDS ORDERED: Acetaminophen/oxyCODONE 325-5 MG Tab ONE (12:17)
== END 2020-12-01 12:50 | disposition home or self-care (01) ==
LOC: MW.SDS 07:31 → UNDOADMIN 14:45 → MW.OB 14:45 → MW.SDS 12-01 12:50
PROVIDERS: ATTEND Obstetrics & Gynecology
DX: N93.9 Abnormal uterine and vaginal bleeding, unspecified (principal); N81.6 Rectocele; N39.3 Stress incontinence (female) (male); N81.11 Cystocele, midline; Z79.899 Other long term (current) drug therapy
CPT/HCPCS: 00840; 36415; 80048; 84703; 85025; 86850; 86900; 86901; 88307; A9270-GY; C1771; J0131; J0690; J1100; J1170; J1650; J1885; J2250; J2270; J2370; J2405; J2704; J2765; J3010; J3490; J7030; J7120

== ENCOUNTER 2020-12-04 12:38 | Emergency (ER) | payer MEDICAID ==
[2020-12-04] MEDS ORDERED: Sodium Chloride 0.9% 2.5 ML Syringe FLUSH PRN (14:58)
[2020-12-04] MEDS ORDERED: Sodium Chloride 0.9% 10 ML Syringe FLUSH PRN (14:58)
--- NOTE | 2020-12-04 15:06 | EDM.PDOC ---
<Obi Barron - Last Filed: 12/04/20 18:07> ED HPI GENERAL MEDICAL PROBLEM - General Chief Complaint: Abdominal Pain Time Seen by Provider: 12/04/20 14:50 - History of Present Illness INITIAL COMMENTS - FREE TEXT/NARRATIVE: History of present illness: [] Patient had a hysterectomy and bladder suspension done by on 30 November 2020. She has increased pain since. The pain is horrible when she sits. She also has pain when she tries to defecate and is constipated. The patient denies fever and chills. She has only bloody discharge from the incision sites. Review of systems: As per history of present illness and below otherwise all systems reviewed and negative. Past medical history: As per history of present illness and as reviewed below otherwise noncontributory. Surgical history: As per history of present illness and as reviewed below otherwise noncontributory. Social history: No reported history of drug or alcohol abuse. Family history: As per history of present illness and as reviewed below otherwise noncontributory. Physical exam: Constitutional - well developed, well-nourished and in no acute distress HEENT - normocephalic, no evidence of trauma - external nose and mouth normal - no mass in neck and no JVD - mucosae moist EYES - full EOM, PERRL, no icterus - no evidence of inflammation, injection, or drainage Respiratory - no respiratory distress, equal bilateral expansion, lungs clear to auscultation and no abnormal lung sounds Cardiovascular - Regular Rhythm with S1 and S2 appreciated and no murmur, gallop or rub. GI - abdomen soft without distension or organomegaly - normal bowel sounds - no guard or rebound Musculoskeletal no gross deformity of long bones or joints - no tenderness, swelling or edema Neurologic - Alert and oriented times four - CN II-XII grossly intact - motor sensory and coordination symmetrically normal Psychiatric - appropriate mood and affect with normal thought content Hematologic - No petechiae or purpura - mucosa appropriate color and sclera not pale - normal nail bed color and refill Integument - no rash or evidence of trauma - normal turgor Diagnostics: [] Therapeutics: [] Impression: [] Plan: [] Definitive disposition and diagnosis as appropriate pending reevaluation and review of above. pelvic, abdomen, rectal Pain Score (Numeric/FACES): 8 - Related Data Allergies Allergy/AdvReac Type Severity Reaction Status Date / Time pollen extracts Allergy "sinus Verified 12/04/20 12:48 congestion" Home Meds: Home Meds Docusate Sodium [Colace] 1 tab PO BID 12/04/20 [History] Ibuprofen 1 tab PO Q4H PRN 12/04/20 [History] oxyCODONE HCl/Acetaminophen [Oxycodone-Acetaminophen 5-325] 1 tab PO Q4H PRN [History] Past Medical History HEENT History: Reports: Other (See Below) Other HEENT History: wears glasses/contacts Cardiovascular History: Reports: None Respiratory History: Reports: None Gastrointestinal History: Reports: None Genitourinary History: Reports: UTI, Recurrent [employer] History: Reports: , Therapeutic Musculoskeletal History: Reports: None Neurological History: Reports: None Psychiatric History: Reports: Anxiety, Other (See Below) Other Psychiatric History: hx post depression Endocrine/Metabolic History: Reports: None Hematologic History: Reports: Anemia Immunologic History: Reports: None Oncologic (Cancer) History: Reports: None Dermatologic History: Reports: None - Infectious Disease History Infectious Disease History: Reports: None - Past Surgical History Head Surgeries/Procedures: Reports: None HEENT Surgical History: Reports: Oral Surgery Cardiovascular Surgical History: Reports: None Respiratory Surgical History: Reports: None GI Surgical History: Reports: Cholecystectomy Female Surgical History: Reports: Breast Reconstruction, D&C Other Female Surgeries/Procedures: "breast lift", Bladder Sling Endocrine Surgical History: Reports: None Neurological Surgical History: Reports: None Musculoskeletal Surgical History: Reports: None Oncologic Surgical History: Reports: None Dermatological Surgical History: Reports: None Social & Family History - Family History Family Medical History: No Pertinent Family History - Tobacco Use Tobacco Use Status *Q: Never Tobacco User - Caffeine Use Caffeine Use: Reports: Soda - Recreational Drug Use Recreational Drug Use: No ED ROS GENERAL - Review of Systems Review Of Systems: Comprehensive ROS is negative, except as noted in HPI. ED EXAM, GENERAL - Physical Exam Exam: See Below Free Text/Narrative:: My physical exam is in the HPI Course - Vital Signs Text/Narrative:: Discussed with who said she wanted a CT of the abdomen pelvis and when the studies have been done to call her and she would examine the patient in the emergency department herself. requested we do an enema and this was administered. She is coming to evaluate the patient before discharge. She will make disposition. Departure - Departure Time of Disposition: 18:30 Disposition: Home, Self-Care 01 Condition: Good Clinical Impression: Pelvic pain, Constipation, Abdominal pain - Discharge Information Instructions: Pelvic Pain, Female, [id number], Constipation, Adult, How to Prevent Constipation After Surgery Referrals: Pedro Luis Tirado MD [Primary Care Provider] - Memo Ramirez MD [Physician] - Forms: ED Department Discharge Additional Instructions: In addition to any instructions here and please follow the instructions of your core stacker. [facility] [address] [place] [id number] [address] The following information is given to patients seen in the emergency department who are being discharged to home. This information is to outline your options for follow-up care. We provide all patients seen in our emergency department with a follow-up referral. The need for follow-up, as well as the timing and circumstances, are variable depending upon the specifics of your emergency department visit. If you don't have a primary care physician on staff, we will provide you with a referral. We always advise you to contact your personal physician following an emergency department visit to inform them of the circumstance of the visit and for follow-up with them and/or the need for any referrals to a consulting specialist. The emergency department will also refer you to a specialist when appropriate. This referral assures that you have the opportunity for follow-up care with a specialist. All of these measure are taken in an effort to provide you with optimal care, which includes your follow-up. Under all circumstances we always encourage you to contact your private physician who remains a resource for coordinating your care. When calling for follow-up care, please make the office aware that this follow-up is from your recent emergency room visit. If for any reason you are refused follow-up, please contact the [facility] Emergency Department at and asked to speak to the emergency department charge nurse. Sepsis Event Note (ED) - Evaluation Sepsis Screening Result: No Definite Risk <Hunter Garibay - Last Filed: 12/04/20 18:41> Course - Vital Signs Last Recorded V/S: Last Vital Signs Temp 98.4 F 12/04/20 14:52 Pulse 85 12/04/20 15:53 Resp 16 12/04/20 15:53 BP 137/83 12/04/20 15:53 Pulse Ox 98 12/04/20 15:53 - Orders/Labs/Meds Orders: Active Orders 24 hr Category Date Time Status Enema [RC] ASDIRECTED Care 12/04/20 16:44 Active Notify Provider Consults [RC] ASDIRECTED Care 12/04/20 17:59 Active Consult to Physician [CONS] Stat Cons 12/04/20 17:58 Active Sodium Chloride 0.9% [Saline Flush] Med 12/04/20 14:58 Active 10 ml FLUSH ASDIRECTED PRN Sodium Chloride 0.9% [Saline Flush] Med 12/04/20 14:58 Active 2.5 ml FLUSH ASDIRECTED PRN Saline Lock Insert [OM.PC] Stat Oth 12/04/20 14:58 Ordered Medication Orders Sodium Chloride (Sodium Chloride 0.9% 10 Ml Syringe) 10 ml FLUSH ASDIRECTED PRN PRN Reason: Keep Vein Open Last Admin: 12/04/20 15:51 Dose: 10 ml Documented by: DARIANA Sodium Chloride (Sodium Chloride 0.9% 2.5 Ml Syringe) 2.5 ml FLUSH ASDIRECTED PRN PRN Reason: Keep Vein Open Last Admin: 12/04/20 15:50 Dose: 2.5 ml Documented by: DARIANA Labs: Laboratory Tests 12/04/20 12/04/20 Range/Units 15:48 15:48 WBC 5.20 (4.0-11.0) K/uL RBC 3.26 L (4.30-5.90) M/uL Hgb 9.2 L (12.0-16.0) g/dL Hct 29.1 L (36.0-46.0) % MCV 89.3 (80.0-98.0) fL MCH 28.2 (27.0-32.0) pg MCHC 31.6 (31.0-37.0) g/dL RDW Std Deviation 46.8 (28.0-62.0) fl RDW Coeff of Lyudmila 15 (11.0-15.0) % Plt Count 299 (150-400) K/uL MPV 10.10 (7.40-12.00) fL Neut % (Auto) 61.3 (48.0-80.0) % Lymph % (Auto) 26.2 (16.0-40.0) % [place] % (Auto) 7.9 (0.0-15.0) % Eos % (Auto) 4.0 (0.0-7.0) % Baso % (Auto) 0.6 (0.0-1.5) % Neut # (Auto) 3.2 (1.4-5.7) K/uL Lymph # (Auto) 1.4 (0.6-2.4) K/uL [place] # (Auto) 0.4 (0.0-0.8) K/uL Eos # (Auto) 0.2 (0.0-0.7) K/uL Baso # (Auto) 0.0 (0.0-0.1) K/uL Sodium 135 L (136-145) mmol/L Potassium 4.1 (3.5-5.1) mmol/L Chloride 101 (98-107) mmol/L Carbon Dioxide 26.9 (21.0-32.0) mmol/L BUN 14 (7.0-18.0) mg/dL Creatinine 0.9 (0.6-1.0) mg/dL Est Cr Clr Drug Dosing 65.72 mL/min Estimated GFR (MDRD) > 60.0 ml/min Glucose 110 H (74-106) mg/dL Calcium 8.0 L (8.5-10.1) mg/dL Meds: Medications Generic Name Dose Route Start Last Admin Trade Name Freq PRN Reason Stop Dose Admin Sodium Chloride 10 ml 12/04/20 14:58 12/04/20 15:51 Sodium Chloride 0.9% 10 Ml Syringe FLUSH 10 ml ASDIRECTED PRN Administration Keep Vein Open Sodium Chloride 2.5 ml 12/04/20 14:58 12/04/20 15:50 Sodium Chloride 0.9% 2.5 Ml Syringe FLUSH 2.5 ml ASDIRECTED PRN Administration Keep Vein Open Discontinued Medications Generic Name Dose Route Start Last Admin Trade Name Rubio PRN Reason Stop Dose Admin Iopamidol 100 ml 12/04/20 15:41 12/04/20 15:48 Iopamidol 755 Mg/Ml 500 Ml Multipack Bottle IVPUSH 12/04/20 15:42 100 ml ONETIME ONE Administration Ketorolac Tromethamine 30 mg 12/04/20 15:17 12/04/20 15:50 Ketorolac 30 Mg/Ml Sdv IVPUSH 12/04/20 15:18 30 mg ONETIME ONE Administration Sepsis Event Note (ED) - Focused Exam Vital Signs: Vital Signs Temp Pulse Resp BP Pulse Ox 12/04/20 15:53 85 16 137/83 98 12/04/20 14:52 98.4 F 97 16 145/105 H 99 12/04/20 12:45 97.4 F 90 18 132/91 H 97
[2020-12-04] MEDS ORDERED: Ketorolac 30 MG/ML SDV IVPUSH ONE (15:17)
[2020-12-04] MEDS ORDERED: Iopamidol 755 MG/ML 500 ML Multipack Bottle IVPUSH ONE (15:41)
--- NOTE | 2020-12-04 16:17 | CT ---
INDICATION: History of recent hysterectomy with increasing abdominal pain. TECHNIQUE: 2.5 mm axial imaging has been performed through the abdomen and pelvis after IV contrast. Sagittal and coronal reconstructions have been obtained. FINDINGS: Lung bases are free of infiltrate. The liver, spleen, pancreas, bilateral adrenal glands are within normal limits. Patient is status post cholecystectomy. The common bile duct is unremarkable. Incidental small duodenum diverticulum is noted. Kidneys demonstrate nonobstructing bilateral parenchymal kidney stones. Largest is 4 mm medial right kidney. There are small bilateral renal cysts identified. No ureteric stones or hydronephrosis is identified. Postsurgical changes from recent hysterectomy are identified. Inflammatory changes identified in the hysterectomy bed greatest on the left. There is a small amount of fluid. No organized abscess is seen. There is a moderate to large amount retained stool identified within the colon. Largest is rectal region. Urinary bladder is fluid-filled and unremarkable. No findings to suggest bowel obstruction. Skeletal system is unremarkable. IMPRESSION: 1. Postsurgical changes from recent hysterectomy are identified. There is inflammatory changes in the pelvis and trace amount of fluid along the left pelvis. No organized abscess is noted. 2. Moderate to large amount retained stool identified within the colon. No evidence for acute bowel obstruction. 3. There are bilateral renal cysts identified. Nonobstructing bilateral parenchymal kidney stones are identified. No ureteric stones or hydronephrosis is seen. Please note that all CT scans at this facility use dose modulation, iterative reconstruction, and/or weight-based dosing when appropriate to reduce radiation dose to as low as reasonably achievable. Dictated by Joey Ferreira MD @ 12/04/2020 4:16:25 PM (Electronically Signed)
[2020-12-04 16:23] LABS: BLOOD UREA NITROGEN,BUN 14 mg/dL (7.0-18.0); CARBON DIOXIDE,CO2 26.9 mmol/L (21.0-32.0); CHLORIDE,CL 101 mmol/L (98-107); GLUCOSE RANDOM 110 mg/dL (74-106); POTASSIUM,K 4.1 mmol/L (3.5-5.1); SODIUM,NA 135 mmol/L (136-145)
--- NOTE | 2020-12-04 18:14 | EDM.PDOC ---
ED HPI GENERAL MEDICAL PROBLEM - General Chief Complaint: Abdominal Pain Stated Complaint: Pelvic pain Time Seen by Provider: 12/04/20 14:50 Source of Information: Reports: Patient - History of Present Illness INITIAL COMMENTS - FREE TEXT/NARRATIVE: 40yo s/p TLH/BS AP Colporraphy with Single incision midurethral sling here complaining of severe lower abdominal and pelvic pain 2 days after surgery. she called clinic yesterday complaining of pain and was informed to take pain medication and call back if pain gets worse for evaluation. Patient presented to the ER today complaining of worsening pain . she had a bowel movement this morning and it made her pain worse. Exam: General: NAD Chest: CTA BL CVS: S1 S2 no murmurs Abdomen: Laparoscopic incision c/d/i Pelvic . Normal appearing external genitalia , Gentle speculum exam - incision intact , vaginal cuff intact Rectal exam. No sutures in rectal canal , hard compacted stool noted VSS - As documented CBC : 5 < 9.2/29> 299 CTScan - Large amount of stool in rectum , IMP: 40 yo s/p TLH/BS AP Colporraphy, perineorrhaphy with Single incision midurethral sling, POD 4 with postop pain secondary to Fecal impaction Plan Fleet Enema Pain control as needed Recommend high fiber diet Sitz baths Follow up at [facility] in 2 weeks as scheduled pelvic, abdomen, rectal Pain Score (Numeric/FACES): 8 - Related Data Allergies Allergy/AdvReac Type Severity Reaction Status Date / Time pollen extracts Allergy "sinus Verified 12/04/20 12:48 congestion" Home Meds: Home Meds Docusate Sodium [Colace] 1 tab PO BID 12/04/20 [History] Ibuprofen 1 tab PO Q4H PRN 12/04/20 [History] oxyCODONE HCl/Acetaminophen [Oxycodone-Acetaminophen 5-325] 1 tab PO Q4H PRN 12/04/20 [History] Past Medical History HEENT History: Reports: Other (See Below) Other HEENT History: wears glasses/contacts Cardiovascular History: Reports: None Respiratory History: Reports: None Gastrointestinal History: Reports: None Genitourinary History: Reports: UTI, Recurrent [employer] History: Reports: , Therapeutic Musculoskeletal History: Reports: None Neurological History: Reports: None Psychiatric History: Reports: Anxiety, Other (See Below) Other Psychiatric History: hx post depression Endocrine/Metabolic History: Reports: None Hematologic History: Reports: Anemia Immunologic History: Reports: None Oncologic (Cancer) History: Reports: None Dermatologic History: Reports: None - Infectious Disease History Infectious Disease History: Reports: None - Past Surgical History Head Surgeries/Procedures: Reports: None HEENT Surgical History: Reports: Oral Surgery Cardiovascular Surgical History: Reports: None Respiratory Surgical History: Reports: None GI Surgical History: Reports: Cholecystectomy Female Surgical History: Reports: Breast Reconstruction, D&C Other Female Surgeries/Procedures: "breast lift", Bladder Sling Endocrine Surgical History: Reports: None Neurological Surgical History: Reports: None Musculoskeletal Surgical History: Reports: None Oncologic Surgical History: Reports: None Dermatological Surgical History: Reports: None Social & Family History - Family History Family Medical History: No Pertinent Family History - Tobacco Use Tobacco Use Status *Q: Never Tobacco User - Caffeine Use Caffeine Use: Reports: Soda - Recreational Drug Use Recreational Drug Use: No ED ROS GENERAL - Review of Systems Review Of Systems: See Below Constitutional: Reports: No Symptoms HEENT: Reports: No Symptoms Respiratory: Reports: No Symptoms Cardiovascular: Reports: No Symptoms Endocrine: Reports: No Symptoms GI/Abdominal: Reports: Abdominal Pain : Reports: Pain Musculoskeletal: Reports: No Symptoms Skin: Reports: No Symptoms Neurological: Reports: No Symptoms Psychiatric: Reports: No Symptoms ED EXAM, RENAL/ - Physical Exam Exam: See Below Exam Limited By: No Limitations General Appearance: Alert Ears: Normal External Exam GI/Abdominal: Normal Bowel Sounds (Female) Exam: Other (Vaginal cuff well approximated with stitches in place , Anterior and posterior repair stitch on vaginal wall intact , ) Rectal (Female) Exam: Fecal Impaction (Hard feaces noted in the rectum compressing posterior vaginal wall incision , no sutures felt in rectum ) Extremities: Normal Inspection Neurological: Alert Course - Vital Signs Last Recorded V/S: Last Vital Signs Temp 36.9 C 12/04/20 14:52 Pulse 85 12/04/20 15:53 Resp 16 12/04/20 15:53 BP 137/83 12/04/20 15:53 Pulse Ox 98 12/04/20 15:53 - Orders/Labs/Meds Orders: Active Orders 24 hr Category Date Time Status Enema [RC] ASDIRECTED Care 12/04/20 16:44 Active Notify Provider Consults [RC] ASDIRECTED Care 12/04/20 17:59 Active Consult to Physician [CONS] Stat Cons 12/04/20 17:58 Active Sodium Chloride 0.9% [Saline Flush] Med 12/04/20 14:58 Active 10 ml FLUSH ASDIRECTED PRN Sodium Chloride 0.9% [Saline Flush] Med 12/04/20 14:58 Active 2.5 ml FLUSH ASDIRECTED PRN Saline Lock Insert [OM.PC] Stat Oth 12/04/20 14:58 Ordered Medication Orders Sodium Chloride (Sodium Chloride 0.9% 10 Ml Syringe) 10 ml FLUSH ASDIRECTED PRN PRN Reason: Keep Vein Open Last Admin: 12/04/20 15:51 Dose: 10 ml Documented by: DARIANA Sodium Chloride (Sodium Chloride 0.9% 2.5 Ml Syringe) 2.5 ml FLUSH ASDIRECTED PRN PRN Reason: Keep Vein Open Last Admin: 12/04/20 15:50 Dose: 2.5 ml Documented by: DARIANA Labs: Laboratory Tests 12/04/20 12/04/20 Range/Units 15:48 15:48 WBC 5.20 (4.0-11.0) K/uL RBC 3.26 L (4.30-5.90) M/uL Hgb 9.2 L (12.0-16.0) g/dL Hct 29.1 L (36.0-46.0) % MCV 89.3 (80.0-98.0) fL MCH 28.2 (27.0-32.0) pg MCHC 31.6 (31.0-37.0) g/dL RDW Std Deviation 46.8 (28.0-62.0) fl RDW Coeff of Lyudmila 15 (11.0-15.0) % Plt Count 299 (150-400) K/uL MPV 10.10 (7.40-12.00) fL Neut % (Auto) 61.3 (48.0-80.0) % Lymph % (Auto) 26.2 (16.0-40.0) % [place] % (Auto) 7.9 (0.0-15.0) % Eos % (Auto) 4.0 (0.0-7.0) % Baso % (Auto) 0.6 (0.0-1.5) % Neut # (Auto) 3.2 (1.4-5.7) K/uL Lymph # (Auto) 1.4 (0.6-2.4) K/uL [place] # (Auto) 0.4 (0.0-0.8) K/uL Eos # (Auto) 0.2 (0.0-0.7) K/uL Baso # (Auto) 0.0 (0.0-0.1) K/uL Sodium 135 L (136-145) mmol/L Potassium 4.1 (3.5-5.1) mmol/L Chloride 101 (98-107) mmol/L Carbon Dioxide 26.9 (21.0-32.0) mmol/L BUN 14 (7.0-18.0) mg/dL Creatinine 0.9 (0.6-1.0) mg/dL Est Cr Clr Drug Dosing 65.72 mL/min Estimated GFR (MDRD) > 60.0 ml/min Glucose 110 H (74-106) mg/dL Calcium 8.0 L (8.5-10.1) mg/dL Meds: Medications Generic Name Dose Route Start Last Admin Trade Name Freq PRN Reason Stop Dose Admin Sodium Chloride 10 ml 12/04/20 14:58 12/04/20 15:51 Sodium Chloride 0.9% 10 Ml Syringe FLUSH 10 ml ASDIRECTED PRN Administration Keep Vein Open Sodium Chloride 2.5 ml 12/04/20 14:58 12/04/20 15:50 Sodium Chloride 0.9% 2.5 Ml Syringe FLUSH 2.5 ml ASDIRECTED PRN Administration Keep Vein Open Discontinued Medications Generic Name Dose Route Start Last Admin Trade Name Freq PRN Reason Stop Dose Admin Iopamidol 100 ml 12/04/20 15:41 12/04/20 15:48 Iopamidol 755 Mg/Ml 500 Ml Multipack Bottle IVPUSH 12/04/20 15:42 100 ml ONETIME ONE Administration Ketorolac Tromethamine 30 mg 12/04/20 15:17 12/04/20 15:50 Ketorolac 30 Mg/Ml Sdv IVPUSH 12/04/20 15:18 30 mg ONETIME ONE Administration Departure - Departure Time of Disposition: 19:00 Disposition: Home, Self-Care 01 Clinical Impression: Abdominal pain - Discharge Information *PRESCRIPTION DRUG MONITORING PROGRAM REVIEWED*: No *COPY OF PRESCRIPTION DRUG MONITORING REPORT IN PATIENT REYNALDO: No Instructions: Constipation, Adult, How to Prevent Constipation After Surgery Referrals: Pedro Luis Tirado MD [Primary Care Provider] - Memo Ramirez MD [Physician] - Forms: ED Department Discharge Sepsis Event Note (ED) - Evaluation Sepsis Screening Result: No Definite Risk - Focused Exam Vital Signs: Vital Signs Temp Pulse Resp BP Pulse Ox 12/04/20 15:53 85 16 137/83 98 12/04/20 14:52 36.9 C 97 16 145/105 H 99 12/04/20 12:45 36.3 C 90 18 132/91 H 97 - Problem List & Annotations (1) Postoperative abdominal pain SNOMED Code(s): 99336455 Code(s): R10.9 - UNSPECIFIED ABDOMINAL PAIN; G89.18 - OTHER ACUTE POSTPROCE DURAL PAIN Status: Acute Current Visit: Yes (2) S/P hysterectomy SNOMED Code(s): 872511691, 147915617, 787312403 Code(s): Z90.710 - ACQUIRED ABSENCE OF BOTH CERVIX AND UTERUS Status: Acute Current Visit: No (3) Status post anterior colporrhaphy SNOMED Code(s): 22371662774563344, 77245977080307327 Code(s): Z98.890 - OTHER SPECIFIED POSTPROCEDURAL STATES Status: Acute Current Visit: No
[2020-12-04 18:49] VITALS: BP 131/88; PULSE 88
== END 2020-12-04 18:50 | disposition home or self-care (01) ==
LOC: MW.ED 12:38
DX: G89.18 Other acute postprocedural pain (principal); R10.30 Lower abdominal pain, unspecified; R10.2 Pelvic and perineal pain; Z91.048 Other nonmedicinal substance allergy status; Z90.49 Acquired absence of other specified parts of digestive tract; Z90.710 Acquired absence of both cervix and uterus
CPT/HCPCS: 36415; 74177; 80048; 85025; 96374; 99284; J1885; Q9967